=== PATIENT | male | born 1990 | race Caucasian/White ===

== ENCOUNTER 2018-09-06 10:03 | Emergency (ER) | payer SELFPAY ==
--- OUTSIDE RECORDS SUMMARY | 2018-09-06 10:06 | XMS REPORT | Clinical Summary ---
:1990 Author Organization [facility] Address [address] [place] [address] Care Team Providers Name Role Phone Asked, No Pcp Primary Care Provider Unavailable Allergies No Known Allergies Medications No known medications Active Problems No known active problems Social History Tobacco Use Types Packs/Day Years Used Date Current Every Day Smoker Alcohol Use Drinks/Week oz/Week Comments Yes 3-5 Cans of beer 1.8 - 3.0 Sex Assigned at Date Recorded Not on file Job Start Date Occupation Industry Not on file Not on file Not on file Travel History Travel Start Travel End No recent travel history available. Last Filed Vital Signs Not on file Plan of Treatment Health Maintenance Due Date Last Done Comments INFLUENZA VACCINE 10/23/2018 Results Not on fileafter 09/05/2017 [phone] (Work) Advance Directives Patient has advance care planning documents on file. For more information, please contact:[address] [address]
[2018-09-06] MEDS ORDERED: COLCHICINE 0.6 MG TAB ONE (10:52)
[2018-09-06] MEDS ORDERED: INDOMETHACIN 25 MG CAP PO ONE (11:00)
--- NOTE | 2018-09-06 11:06 | ER ---
Nurse's Notes [facility] Name: Leonard Gonsales Age: 28 yrs Sex: Male : 1990 Arrival Date: 09/06/2018 Time: 10:06 Bed 14 Private MD: Sha Montgomery Diagnosis: Gout Presentation: 09/06 10:16 Presenting complaint: Patient states: gout flare up to left elbow since night, iw PCP was closed yesterday and he has to go out of town tomorrow, redness and swelling to left elbow, is out of gout medicine. Transition of care: patient was not received from another setting of care. Onset of symptoms was September 04, 2018. Risk Assessment: Do you want to hurt yourself or someone else? Patient reports no desire to harm self or others. Initial Sepsis Screen: Does the patient meet any 2 criteria? No. Patient's initial sepsis screen is negative. Does the patient have a suspected source of infection? No. Patient's initial sepsis screen is negative. Care prior to arrival: None. 10:16 Method Of Arrival: Ambulatory iw 10:16 Acuity: BERNICE 4 iw Historical: - Allergies: 10:20 No Known Allergies; iw - Home Meds: 10:20 None [Active]; iw - PMHx: 10:20 Gout; iw - PSHx: 10:20 Knee surgery; FOOT SX; iw - Immunization history:: Adult Immunizations up to date. - Social history:: Smoking status: Patient uses tobacco products, smokes one pack cigarettes per day. - Ebola Screening: : Patient negative for fever greater than or equal to 101.5 degrees Fahrenheit, and additional compatible Ebola Virus Disease symptoms Patient denies exposure to infectious person Patient denies travel to an Ebola-affected area in the 21 days before illness onset No symptoms or risks identified at this time. Screenin:15 Abuse screen: Denies threats or abuse. Nutritional screening: No deficits noted. rb1 Tuberculosis screening: No symptoms or risk factors identified. Fall Risk None identified. Assessment: 10:15 General: Appears uncomfortable, Behavior is calm, cooperative. Pain: Complains of pain rb1 in left elbow Pain currently is 10 out of 10 on a pain scale. Pain began . Neuro: Level of Consciousness is awake, alert, obeys commands, Oriented to person, place, time, situation. Cardiovascular: Capillary refill < 3 seconds is brisk in bilateral fingers. Respiratory: Airway is patent Respiratory effort is even, unlabored, Respiratory pattern is regular, symmetrical. GI: Reports nausea. : No signs and/or symptoms were reported regarding the genitourinary system. Derm: Skin is pink, warm \T\ dry. Musculoskeletal: Swelling present in left elbow. 11:15 Reassessment: Patient appears in no apparent distress at this time. No changes from rb1 previously documented assessment. Vital Signs: 10:20 BP 138 / 79; Pulse 91; Resp 16; Temp 97.8; Pulse Ox 100% ; Weight 111.13 kg; Height 5 iw ft. 11 in. (180.34 cm); Pain 10/10; 11:15 BP 136 / 75; Pulse 89; Resp 17; Temp 98(O); Pulse Ox 100% on R/A; Pain 9/10; rb1 10:20 Body Mass Index 34.17 (111.13 kg, 180.34 cm) iw ED Course: 10:06 Patient arrived in ED. ag5 10:07 Sha Montgomery MD is Private Physician. ag5 10:14 [facility] jr8 10:14 Rj Francois MD is Attending Physician. jr8 10:15 Patient has correct armband on for positive identification. Bed in low position. Call rb1 light in reach. Side rails up X 1. Pulse ox on. NIBP on. 10:19 Triage completed. iw 10:20 Arm band placed on. iw 10:29 Lucinda Hobbs, RN is Primary Nurse. rb1 11:05 Sha Montgomery MD is Referral Physician. jr8 11:19 No provider procedures requiring assistance completed. Patient did not have IV access rb1 during this emergency room visit. Administered Medications: 10:40 Drug: Colcrys 1.2 mg Route: PO; rb1 11:19 Follow up: Response: No adverse reaction rb1 11:04 Drug: Indomethacin 50 mg Route: PO; rb1 11:19 Follow up: Response: No adverse reaction rb1 Outcome: 11:06 Discharge ordered by . jr8 11:19 Discharged to home ambulatory. rb1 11:19 Condition: stable 11:19 Discharge instructions given to patient, Instructed on discharge instructions, follow up and referral plans. medication usage, Demonstrated understanding of instructions, follow-up care, medications, Prescriptions given X 2. 11:20 Patient left the ED. rb1 Signatures: Sandra Martin RN RN iw Wali Molina PA PA jr8 Lucinda Hobbs, RN RN rb1 Floyd Anderson ag5 Corrections: (The following items were deleted from the chart) 10:21 10:20 Pulse 91bpm; Resp 16bpm; Pulse Ox 100%; Temp 97.8F; 111.13 kg; Height 5 ft. 11 iw in.; BMI: 34.1; Pain 01/01; iw
--- NOTE | 2018-09-06 11:06 | EDPHYS ---
Physician Documentation [facility] Name: Leonard Gonsales Age: 28 yrs Sex: Male : 1990 Arrival Date: 09/06/2018 Time: 10:06 Bed 14 Private MD: Sha Montgomery ED Physician Rj Francois HPI: 09/06 11:14 This 28 yrs old Male presents to ER via Ambulatory with complaints of GOUT jr8 FLARE UP. 11:14 The patient or guardian complains of pain, swelling, tenderness. The complaints affect jr8 the left elbow. Context: The problem was sustained at home. Onset: The symptoms/episode began/occurred acutely, yesterday. Treatment prior to arrival includes: no previous treatment. Modifying factors: The symptoms are alleviated by nothing. the symptoms are aggravated by movement. Associated signs and symptoms: The patient has no apparent associated signs or symptoms. Severity of symptoms: At their worst the symptoms were moderate, in the emergency department the symptoms are unchanged. The patient has experienced similar episodes in the past, several times. The patient has not recently seen a physician. History of gout. Stated that he has been off of his meds for several weeks an now is having a flare up. Fixing to leave town and cannot get into PCP . Historical: - Allergies: 10:20 No Known Allergies; iw - Home Meds: 10:20 None [Active]; iw - PMHx: 10:20 Gout; iw - PSHx: 10:20 Knee surgery; FOOT SX; iw - Immunization history:: Adult Immunizations up to date. - Social history:: Smoking status: Patient uses tobacco products, smokes one pack cigarettes per day. - Ebola Screening: : Patient negative for fever greater than or equal to 101.5 degrees Fahrenheit, and additional compatible Ebola Virus Disease symptoms Patient denies exposure to infectious person Patient denies travel to an Ebola-affected area in the 21 days before illness onset No symptoms or risks identified at this time. ROS: 11:14 Eyes: Negative for injury, pain, redness, and discharge, ENT: Negative for injury, jr8 pain, and discharge, Neck: Negative for injury, pain, and swelling, Cardiovascular: Negative for chest pain, palpitations, and edema, Respiratory: Negative for shortness of breath, cough, wheezing, and pleuritic chest pain, Abdomen/GI: Negative for abdominal pain, nausea, vomiting, diarrhea, and constipation, Back: Negative for injury and pain, Skin: Negative for injury, rash, and discoloration, Neuro: Negative for headache, weakness, numbness, tingling, and seizure. 11:14 MS/extremity: Positive for pain, swelling, tenderness, of the left elbow. Exam: 11:14 Eyes: Pupils equal round and reactive to light, extra-ocular motions intact. Lids and jr8 lashes normal. Conjunctiva and sclera are non-icteric and not injected. Cornea within normal limits. Periorbital areas with no swelling, redness, or edema. ENT: Nares patent. No nasal discharge, no septal abnormalities noted. Tympanic membranes are normal and external auditory canals are clear. Oropharynx with no redness, swelling, or masses, exudates, or evidence of obstruction, uvula midline. Mucous membranes moist. Neck: Trachea midline, no thyromegaly or masses palpated, and no cervical lymphadenopathy. Supple, full range of motion without nuchal rigidity, or vertebral point tenderness. No Meningismus. Cardiovascular: Regular rate and rhythm with a normal S1 and S2. No gallops, murmurs, or rubs. Normal PMI, no JVD. No pulse deficits. Respiratory: Lungs have equal breath sounds bilaterally, clear to auscultation and percussion. No rales, rhonchi or wheezes noted. No increased work of breathing, no retractions or nasal flaring. Abdomen/GI: Soft, non-tender, with normal bowel sounds. No distension or tympany. No guarding or rebound. No evidence of tenderness throughout. Back: No spinal tenderness. No costovertebral tenderness. Full range of motion. Skin: Warm, dry with normal turgor. Normal color with no rashes, no lesions, and no evidence of cellulitis. Neuro: Awake and alert, GCS 15, oriented to person, place, time, and situation. Cranial nerves II-XII grossly intact. Motor strength 5/5 in all extremities. Sensory grossly intact. Cerebellar exam normal. Normal gait. 11:14 Musculoskeletal/extremity: Extremities: grossly normal except: noted in the left elbow: Mild swelling, warmth, and tenderness noted to left elbow. Pain with active and passive ROM noted. All other extremities without acute findings , Circulation is intact in all extremities. Pulses: noted to be 2+ in the right radial artery and left radial artery, Sensation intact. Vital Signs: 10:20 BP 138 / 79; Pulse 91; Resp 16; Temp 97.8; Pulse Ox 100% ; Weight 111.13 kg; Height 5 iw ft. 11 in. (180.34 cm); Pain 10/10; 11:15 BP 136 / 75; Pulse 89; Resp 17; Temp 98(O); Pulse Ox 100% on R/A; Pain 9/10; rb1 10:20 Body Mass Index 34.17 (111.13 kg, 180.34 cm) iw MDM: 10:14 Patient medically screened. jr8 11:05 Data reviewed: vital signs, nurses notes, and as a result, I will discharge patient. jr8 Data interpreted: Pulse oximetry: on room air is 100 %. Interpretation: normal. Counseling: I had a detailed discussion with the patient and/or guardian regarding: the historical points, exam findings, and any diagnostic results supporting the discharge/admit diagnosis, the need for outpatient follow up, a family practitioner, to return to the emergency department if symptoms worsen or persist or if there are any questions or concerns that arise at home. Response to treatment: the patient's symptoms have markedly improved after treatment. Administered Medications: 10:40 Drug: Colcrys 1.2 mg Route: PO; rb1 11:19 Follow up: Response: No adverse reaction rb1 11:04 Drug: Indomethacin 50 mg Route: PO; rb1 11:19 Follow up: Response: No adverse reaction rb1 Disposition: 09/07 08:18 Co-signature as Attending Physician, Rj Francois MD. Disposition: 09/06/18 11:06 Discharged to Home. Impression: Gout. - Condition is Stable. - Discharge Instructions: Gout. - Prescriptions for Colcrys 0.6 mg Oral tablet - take 1 tablet by ORAL route once daily; 6 tablet. indomethacin 50 mg Oral capsule - take 1 capsule by ORAL route 3 times per day As needed with food.; 12 capsule. - Medication Reconciliation Form, Thank You Letter, Antibiotic Education, Prescription Opioid Use form. - Follow up: Sha Montgomery MD; When: 5 - 6 days; Reason: Recheck today's complaints, Continuance of care, Re-evaluation by your physician. - Problem is new. - Symptoms have improved. Signatures: Sandra Martin RN RN iw Wali Molina PA PA jr8 Lucinda Hobbs, RN RN rb1 Rj Francois MD MD gs Corrections: (The following items were deleted from the chart) 09/06 11:20 11:06 09/06/2018 11:06 Discharged to Home. Impression: Gout. Condition is Stable. Forms rb1 are Medication Reconciliation Form, Thank You Letter, Antibiotic Education, Prescription Opioid Use. Follow up: Sha Montgomery; When: 5 - 6 days; Reason: Recheck today's complaints, Continuance of care, Re-evaluation by your physician. Problem is new. Symptoms have improved. jr8
== END 2018-09-06 11:20 | disposition home or self-care (01) ==
LOC: ER 10:03
DX: M10.9 Gout, unspecified (principal); F17.210 Nicotine dependence, cigarettes, uncomplicated
CPT/HCPCS: 99283

== ENCOUNTER 2020-01-21 14:54 | Emergency (ER) | payer BC, SELFPAY ==
--- OUTSIDE RECORDS SUMMARY | 2020-01-21 15:01 | XMS REPORT | Clinical Summary ---
:1990 Author Organization [facility] Address [address] [place] [id number] Care Team Providers Name Role Phone Asked, No Pcp Primary Care Provider Unavailable Allergies No Known Active Allergies Medications No known medications Active Problems No known active problems Surgical History Surgery Date Site/Laterality Comments ORTHOPEDIC SURGERY 03/25/2014 - 03/24/2015 Right Right A CL ORTHOPEDIC SURGERY 03/25/2013 - 03/24/2014 Bilateral Hammer toe surgery Social History Tobacco Use Types Packs/Day Years Used Date Current Every Day Smoker Alcohol Use Drinks/Week oz/Week Comments Yes 3-5 Cans of beer 3.0 - 5.0 Sex Assigned at Date Recorded Not on file Last Filed Vital Signs Not on file Plan of Treatment Health Maintenance Due Date Last Done Comments INFLUENZA VACCINE 10/24/2019 Results Not on fileafter 01/20/2019 [phone] (Work) Advance Directives For more information, please contact: [phone] Type Date Recorded 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
--- NOTE | 2020-01-21 16:26 | EDPHYS ---
Physician Documentation [facility] Name: Leonard Gonsales Age: 29 yrs Sex: Male : 1990 Arrival Date: 01/21/2020 Time: 15:03 Bed 18 Private MD: ED Physician Diogenes Blanton HPI: 01/20 17:41 This 29 yrs old Male presents to ER via Ambulatory with complaints of Gout. kdr 17:41 The patient or guardian complains of decreased range of motion, pain, that is acute. kdr The complaints affect the left antecubital area and left elbow. Context: The problem was sustained at home, resulted from a chronic condition, Gout flare. Onset: The symptoms/episode began/occurred yesterday. Treatment prior to arrival includes: no previous treatment. Modifying factors: The symptoms are alleviated by nothing. the symptoms are aggravated by movement, bending arm. Associated signs and symptoms: Pertinent positives: decreased range of motion, pain, warmth, of the left antecubital area and left elbow. Severity of symptoms: At their worst the symptoms were mild, moderate, just prior to arrival, in the emergency department the symptoms are unchanged. The patient has experienced similar episodes in the past, multiple times, and the symptoms today are exactly the same. The patient has not recently seen a physician. Historical: - Allergies: 15:07 No Known Allergies; sv - PMHx: 15:07 Gout; sv - PSHx: 15:07 Knee surgery; FOOT SX; sv - Immunization history:: Flu vaccine is up to date. - Social history:: Smoking status: Patient reports the use of cigarette tobacco products, smokes one pack cigarettes per day. ROS: 17:41 Constitutional: Negative for fever, chills, and weight loss, Eyes: Negative for injury, kdr pain, redness, and discharge. 17:41 MS/extremity: Positive for decreased range of motion, pain, tenderness, of the left antecubital area and left elbow. Exam: 17:41 Constitutional: This is a well developed, well nourished patient who is awake, alert, kdr and in no acute distress. 17:41 Musculoskeletal/extremity: ROM: limited active range of motion, limited passive range of motion, in the left arm, limited active range of motion due to pain, limited passive range of motion due to pain, Circulation is intact in all extremities. Sensation intact. Joints: All joints are normal except the left elbow displays pain at rest, painful range of motion, tenderness. Vital Signs: 15:07 BP 123 / 76; Pulse 82; Resp 18; Temp 97.4; Pulse Ox 100% ; Weight 117.93 kg; Height 5 sv ft. 11 in. (180.34 cm); 15:51 BP 143 / 84; Pulse 86; Resp 16; Pulse Ox 98% on R/A; ss 15:07 Body Mass Index 36.26 (117.93 kg, 180.34 cm) sv MDM: 16:25 Patient medically screened. kdr 17:41 Data reviewed: vital signs, nurses notes. Counseling: I had a detailed discussion with kdr the patient and/or guardian regarding: the historical points, exam findings, and any diagnostic results supporting the discharge/admit diagnosis, the need for outpatient follow up. Administered Medications: No medications were administered Disposition: 01/21/20 16:25 Discharged to Home. Impression: Idiopathic gout, left elbow. - Condition is Stable. - Discharge Instructions: Low-Purine Diet, Gout, [id number]. - Prescriptions for Colcrys 0.6 mg Oral tablet - take 1 tablet by ORAL route once daily As needed; 6 tablet. indomethacin 50 mg Oral capsule - take 1 capsule by ORAL route 3 times per day for 4 days; 12 capsule. - Medication Reconciliation Form, Thank You Letter form. - Follow up: Private Physician; When: 2 - 3 days; Reason: If symptoms return, Further diagnostic work-up, Recheck today's complaints, Continuance of care, Re-evaluation by your physician. - Problem is an acute exacerbation. - Symptoms are unchanged. Signatures: Caitlyn Clayton, RN RN Diogenes Blanton MD MD [facility] Luz Maria Goldstein RN RN ll2 Corrections: (The following items were deleted from the chart) 16:36 16:25 01/21/2020 16:25 Discharged to Home. Impression: Idiopathic gout, left elbow. ll2 Condition is Stable. Forms are Medication Reconciliation Form, Thank You Letter, Antibiotic Education, Prescription Opioid Use. Follow up: Private Physician; When: 2 - 3 days; Reason: If symptoms return, Further diagnostic work-up, Recheck today's complaints, Continuance of care, Re-evaluation by your physician. Problem is an acute exacerbation. Symptoms are unchanged. kdr
--- NOTE | 2020-01-21 16:26 | ER ---
Nurse's Notes [facility] Name: Leonard Gonsales Age: 29 yrs Sex: Male : 1990 Arrival Date: 01/21/2020 Time: 15:03 Bed 18 Private MD: Diagnosis: Idiopathic gout, left elbow Presentation: 01/20 15:06 Chief complaint: Patient states: left elbow gout that has increased over the last 3 sv days. Coronavirus screen: Client denies travel out of the [place] in the last 14 days. At this time, the client does not indicate any symptoms associated with coronavirus-19. Ebola Screen: No symptoms or risks identified at this time. Risk Assessment: Do you want to hurt yourself or someone else? Patient reports no desire to harm self or others. Onset of symptoms was January 18, 2020. 15:06 Method Of Arrival: Ambulatory sv 15:06 Acuity: BERNICE 4 sv 15:07 Initial Sepsis Screen: Does the patient meet any 2 criteria? No. Patient's initial sv sepsis screen is negative. Does the patient have a suspected source of infection? No. Patient's initial sepsis screen is negative. Triage Assessment: 15:06 General: Appears in no apparent distress. uncomfortable, Behavior is calm, cooperative, sv appropriate for age. Pain: Complains of pain in left elbow. Neuro: Level of Consciousness is awake, alert, obeys commands, Gait is steady. Respiratory: Respiratory effort is even, unlabored. Historical: - Allergies: 15:07 No Known Allergies; sv - PMHx: 15:07 Gout; sv - PSHx: 15:07 Knee surgery; FOOT SX; sv - Immunization history:: Flu vaccine is up to date. - Social history:: Smoking status: Patient reports the use of cigarette tobacco products, smokes one pack cigarettes per day. Screenin:50 Abuse screen: Denies threats or abuse. Nutritional screening: No deficits noted. ss Tuberculosis screening: No symptoms or risk factors identified. Fall Risk None identified. Assessment: 15:49 General: Appears in no apparent distress. Behavior is calm, cooperative, appropriate ss for age. Pain: Complains of pain in left elbow. Neuro: Level of Consciousness is awake, alert, obeys commands, Oriented to person, place, time, situation. Cardiovascular: Capillary refill < 3 seconds Patient's skin is warm and dry. Respiratory: Airway is patent Respiratory effort is even, unlabored, Respiratory pattern is regular, symmetrical. GI: No signs and/or symptoms were reported involving the gastrointestinal system. : No signs and/or symptoms were reported regarding the genitourinary system. EENT: No signs and/or symptoms were reported regarding the EENT system. Derm: Skin is intact, is healthy with good turgor, Skin is dry, Skin is pink, warm \T\ dry. Skin temperature is warm. Musculoskeletal: Circulation, motion, and sensation intact. Range of motion: limited in left elbow. Vital Signs: 15:07 BP 123 / 76; Pulse 82; Resp 18; Temp 97.4; Pulse Ox 100% ; Weight 117.93 kg; Height 5 sv ft. 11 in. (180.34 cm); 15:51 BP 143 / 84; Pulse 86; Resp 16; Pulse Ox 98% on R/A; ss 15:07 Body Mass Index 36.26 (117.93 kg, 180.34 cm) sv ED Course: 15:03 Patient arrived in ED. ds1 15:06 Arm band placed on. sv 15:07 Triage completed. sv 15:44 Marcos Nails, RN is Primary Nurse. em 15:51 Patient has correct armband on for positive identification. Bed in low position. Call light in reach. Side rails up X 1. Pulse ox on. NIBP on. 15:58 Diogenes Blanton MD is Attending Physician. kdr 16:36 No provider procedures requiring assistance completed. Patient did not have IV access ll2 during this emergency room visit. Administered Medications: No medications were administered Outcome: 16:25 Discharge ordered by . kdr 16:36 Discharged to home ambulatory. ll2 16:36 Condition: stable 16:36 Discharge instructions given to patient, Instructed on discharge instructions, follow up and referral plans. medication usage, Demonstrated understanding of instructions, follow-up care, medications, Prescriptions given X 2. 16:36 Patient left the ED. ll2 Signatures: Caitlyn Clayton RN RN Diogenes Blanton MD MD [facility] Marcos Nails RN JOVANI Mccoyi ds1 Emelia Perkins RN RN Luz Maria Goldstein RN RN ll2 Corrections: (The following items were deleted from the chart) 15:10 15:07 Resp 18bpm; Pulse Ox 100%; Temp 97.4F; 117.93 kg; Height 5 ft. 11 in.; BMI: 36.2; sv sv
[2020-01-21 16:46] VITALS: TEMP 97.4
[2020-01-21 16:47] VITALS: BP 143/84; O2SAT 98
== END 2020-01-21 16:36 | disposition home or self-care (01) ==
LOC: ER 14:54
DX: M10.022 Idiopathic gout, left elbow (principal); F17.210 Nicotine dependence, cigarettes, uncomplicated
CPT/HCPCS: 99283

== ENCOUNTER 2020-02-11 13:24 | Emergency (ER) | payer BC ==
--- OUTSIDE RECORDS SUMMARY | 2020-02-11 13:38 | XMS REPORT | Clinical Summary ---
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
[2020-02-11] MEDS ORDERED: METHYLPREDNISOLONE 125 MG INJ ONE (14:33)
[2020-02-11] MEDS ORDERED: AZITHROMYCIN 250 MG TAB ONE (14:33)
[2020-02-11] MEDS ORDERED: IPRATROPIUM BROM 0.5MG/2.5ML ONE (14:33)
[2020-02-11] MEDS ORDERED: ALBUTEROL 2.5 MG/3 ML NEB SOL ONE (14:33)
--- NOTE | 2020-02-11 14:54 | RAD REPORT ---
EXAM DESCRIPTION: RAD - Chest Single View - 02/11/2020 2:48 pm CLINICAL HISTORY: COUGH Chest pain. COMPARISON: No comparisons FINDINGS: Portable technique limits examination quality. The lungs are grossly clear. The heart is normal in size. No displaced fractures. IMPRESSION: No acute intrathoracic process suspected.
--- NOTE | 2020-02-11 15:15 | EDPHYS ---
Physician Documentation [facility] Name: Leonard Gonsales Age: 29 yrs Sex: Male : 1990 Arrival Date: 02/11/2020 Time: 13:26 Bed 19 Private MD: Sha Montgomery ED Physician Jericho Spence HPI: 02/10 15:10 This 29 yrs old Male presents to ER via Ambulatory with complaints of kb Bronchitis. 15:10 The patient or guardian reports cough, that is intermittent, described as moderate, kb with no sputum, difficulty breathing. Onset: The symptoms/episode began/occurred 6 day(s) ago. Severity of symptoms: At their worst the symptoms were moderate, in the emergency department the symptoms are unchanged. Modifying factors: The symptoms are alleviated by nothing, the symptoms are aggravated by nothing. Associated signs and symptoms: The patient has no apparent associated signs or symptoms. The patient has experienced similar episodes in the past, multiple times. The patient has not recently seen a physician. Pt reports he has chronic bronchitis and needs some medication because it has been acting up for the past 6 days. Historical: - Allergies: 13:50 No Known Allergies; rb3 - Home Meds: 13:50 None [Active]; rb3 - PMHx: 13:50 Gout; rb3 - PSHx: 13:50 Knee surgery; FOOT SX; rb3 - Immunization history:: Adult Immunizations up to date. ROS: 15:09 Constitutional: Negative for fever, chills, and weight loss, Cardiovascular: Negative kb for chest pain, palpitations, and edema, Abdomen/GI: Negative for abdominal pain, nausea, vomiting, diarrhea, and constipation, Back: Negative for injury and pain, MS/Extremity: Negative for injury and deformity, Skin: Negative for injury, rash, and discoloration, Neuro: Negative for headache, weakness, numbness, tingling, and seizure. 15:09 Respiratory: Positive for cough, shortness of breath, Negative for hemoptysis, orthopnea, pleurisy, sputum production, wheezing. Exam: 15:09 Constitutional: This is a well developed, well nourished patient who is awake, alert, kb and in no acute distress. Head/Face: Normocephalic, atraumatic. Chest/axilla: Normal chest wall appearance and motion. Nontender with no deformity. No lesions are appreciated. Cardiovascular: Regular rate and rhythm with a normal S1 and S2. No gallops, murmurs, or rubs. Normal PMI, no JVD. No pulse deficits. Abdomen/GI: Soft, non-tender, with normal bowel sounds. No distension or tympany. No guarding or rebound. No evidence of tenderness throughout. Skin: Warm, dry with normal turgor. Normal color with no rashes, no lesions, and no evidence of cellulitis. MS/ Extremity: Pulses equal, no cyanosis. Neurovascular intact. Full, normal range of motion. Neuro: Awake and alert, GCS 15, oriented to person, place, time, and situation. Cranial nerves II-XII grossly intact. Motor strength 5/5 in all extremities. Sensory grossly intact. Cerebellar exam normal. Normal gait. 15:09 Respiratory: the patient does not display signs of respiratory distress, Respirations: normal, Breath sounds: wheezing: expiratory that is moderate, is heard diffusely. Vital Signs: 13:55 BP 143 / 92; Pulse 62; Resp 18; Temp 98.2; Pulse Ox 98% on R/A; Weight 120.2 kg; Height iw 5 ft. 11 in. (180.34 cm); Pain 0/10; 14:37 BP 135 / 91; Pulse 67; Resp 17; Pulse Ox 100% ; rb3 15:27 BP 135 / 91; Pulse 67; Resp 16; Pulse Ox 100% ; rb3 13:55 Body Mass Index 36.96 (120.20 kg, 180.34 cm) iw MDM: 13:50 Patient medically screened. kb 15:09 Data reviewed: vital signs, nurses notes. Data interpreted: Pulse oximetry: on room air kb is 100 %. Interpretation: normal. Counseling: I had a detailed discussion with the patient and/or guardian regarding: the historical points, exam findings, and any diagnostic results supporting the discharge/admit diagnosis, radiology results, the need for outpatient follow up, a family practitioner, to return to the emergency department if symptoms worsen or persist or if there are any questions or concerns that arise at home. 02/10 14:05 Order name: Chest Single View XRAY; Complete Time: 14:59 kb Administered Medications: 14:30 Drug: SOLU-Medrol 125 mg Route: IM; Site: right gluteus; rb3 14:45 Follow up: Response: No adverse reaction rb3 14:30 Drug: Zithromax 500 mg Route: PO; rb3 15:00 Follow up: Response: No adverse reaction rb3 14:30 Drug: DuoNeb (3:1) (2.5 mg - 0.5 mg) 3 ml Route: Nebulizer; rb3 14:45 Follow up: Response: No adverse reaction rb3 Disposition: 02/11 06:04 Co-signature as Attending Physician, Jericho Spence MD I agree with the assessment and tyson plan of care. Disposition: 02/11/20 15:14 Discharged to Home. Impression: Acute bronchitis. - Condition is Stable. - Discharge Instructions: Acute Bronchitis, [id number]. - Prescriptions for Prednisone 20 mg Oral Tablet - take 1 tablet by ORAL route once daily for 5 days; 5 tablet. Albuterol Sulfate 90 mcg/actuation - inhale 1-2 puff by INHALATION route every 4-6 hours; 1 Inhaler. Zithromax 500 mg Oral Tablet - take 1 tablet by ORAL route once daily for 5 days; 5 tablet. - Medication Reconciliation Form, Thank You Letter, Antibiotic Education, Prescription Opioid Use form. - Follow up: Emergency Department; When: As needed; Reason: Worsening of condition. Follow up: Private Physician; When: 2 - 3 days; Reason: Recheck today's complaints, Continuance of care, Re-evaluation by your physician. Signatures: Dispatcher [employer] EDNC Dana Barrios, COSMETIC ASSEMBLER-C COSMETIC ASSEMBLER-Jericho Saha MD MD cha Barber, Rebecca, RN RN rb3 Corrections: (The following items were deleted from the chart) 02/10 15:10 15:09 Respiratory: the patient does not display signs of respiratory distress, kb Respirations: normal, Breath sounds: wheezing: expiratory that is moderate, is scattered, kb 15:36 15:14 02/11/2020 15:14 Discharged to Home. Impression: Acute bronchitis. Condition is rb3 Stable. Forms are Medication Reconciliation Form, Thank You Letter, Antibiotic Education, Prescription Opioid Use. Follow up: Emergency Department; When: As needed; Reason: Worsening of condition. Follow up: Private Physician; When: 2 - 3 days; Reason: Recheck today's complaints, Continuance of care, Re-evaluation by your physician. kb
--- NOTE | 2020-02-11 15:15 | ER ---
Nurse's Notes [facility] Name: Leonard Gonsales Age: 29 yrs Sex: Male : 1990 Arrival Date: 02/11/2020 Time: 13:26 Bed 19 Private MD: Sha Montgomery Diagnosis: Acute bronchitis Presentation: 02/10 13:53 Chief complaint: Patient states: i have chronic bronchitis and for the last few days i iw feel like it is acting up. Coronavirus screen: Client denies travel out of the [place] in the last 14 days. Ebola Screen: No symptoms or risks identified at this time. 13:53 Method Of Arrival: Ambulatory iw 13:55 Initial Sepsis Screen: Does the patient meet any 2 criteria? No. Patient's initial iw sepsis screen is negative. Does the patient have a suspected source of infection? No. Patient's initial sepsis screen is negative. Risk Assessment: Do you want to hurt yourself or someone else? Patient reports no desire to harm self or others. Onset of symptoms is unknown. 13:55 Acuity: BERNICE 4 iw Historical: - Allergies: 13:50 No Known Allergies; rb3 - Home Meds: 13:50 None [Active]; rb3 - PMHx: 13:50 Gout; rb3 - PSHx: 13:50 Knee surgery; FOOT SX; rb3 - Immunization history:: Adult Immunizations up to date. Screenin:50 Abuse screen: Denies threats or abuse. Nutritional screening: No deficits noted. rb3 Tuberculosis screening: No symptoms or risk factors identified. Fall Risk None identified. Assessment: 13:50 General: Appears in no apparent distress. comfortable, Behavior is calm, cooperative, rb3 Denies fever. Pain: Denies pain. Neuro: Level of Consciousness is awake, alert, obeys commands, Oriented to person, place, time, situation. Cardiovascular: Patient's skin is warm and dry. Respiratory: Airway is patent Respiratory effort is even, unlabored, Respiratory pattern is regular, symmetrical. Respiratory: Reports cough that is productive, yellow/green sputum. GI: No signs and/or symptoms were reported involving the gastrointestinal system. : No signs and/or symptoms were reported regarding the genitourinary system. 14:44 Reassessment: Patient appears in no apparent distress at this time. Patient and/or rb3 family updated on plan of care and expected duration. Pain level reassessed. Patient is alert, oriented x 3, equal unlabored respirations, skin warm/dry/pink. 15:25 Reassessment: Patient appears in no apparent distress at this time. No changes from rb3 previously documented assessment. Vital Signs: 13:55 BP 143 / 92; Pulse 62; Resp 18; Temp 98.2; Pulse Ox 98% on R/A; Weight 120.2 kg; Height iw 5 ft. 11 in. (180.34 cm); Pain 0/10; 14:37 BP 135 / 91; Pulse 67; Resp 17; Pulse Ox 100% ; rb3 15:27 BP 135 / 91; Pulse 67; Resp 16; Pulse Ox 100% ; rb3 13:55 Body Mass Index 36.96 (120.20 kg, 180.34 cm) iw ED Course: 13:26 Patient arrived in ED. ag5 13:26 Sha Montgomery MD is Private Physician. ag5 13:36 Dana Barrios FNP-C is [facility]. kb 13:36 Jericho Spence MD is Attending Physician. kb 13:50 Patient has correct armband on for positive identification. Bed in low position. Call rb3 light in reach. Side rails up X 1. Pulse ox on. NIBP on. 13:50 Arm band placed on right wrist. rb3 13:55 Triage completed. iw 14:16 Lucinda Hobbs, RN is Primary Nurse. rb3 14:49 Chest Single View XRAY In Process Unspecified. EDMS 15:28 No provider procedures requiring assistance completed. Patient did not have IV access rb3 during this emergency room visit. Administered Medications: 14:30 Drug: SOLU-Medrol 125 mg Route: IM; Site: right gluteus; rb3 14:45 Follow up: Response: No adverse reaction rb3 14:30 Drug: Zithromax 500 mg Route: PO; rb3 15:00 Follow up: Response: No adverse reaction rb3 14:30 Drug: DuoNeb (3:1) (2.5 mg - 0.5 mg) 3 ml Route: Nebulizer; rb3 14:45 Follow up: Response: No adverse reaction rb3 Outcome: 15:14 Discharge ordered by . kb 15:28 Discharged to home ambulatory. rb3 15:28 Condition: stable 15:28 Discharge instructions given to patient, Instructed on discharge instructions, follow up and referral plans. medication usage, Demonstrated understanding of instructions, follow-up care, medications, Prescriptions given X 3. 15:36 Patient left the ED. rb3 Signatures: Dispatcher [employer] EDMS Dana Bariros, ASSOCIATE PROFESSOR OF KINESIOLOGY-C KEERTHI-Sandra Ko RN RN Floyd Anderson [facility] Lucinda Hobbs, RN RN rb3
[2020-02-12 02:14] VITALS: TEMP 98.2
[2020-02-12 02:21] VITALS: BP 135/91; O2SAT 100
== END 2020-02-11 15:36 | disposition home or self-care (01) ==
LOC: ER 13:24
DX: J20.9 Acute bronchitis, unspecified (principal)
CPT/HCPCS: 71045; 96372; 99284; J2930

== ENCOUNTER 2021-02-24 11:46 | Emergency (ER) | payer BC ==
--- NOTE | 2021-02-24 12:29 | ER ---
Nurse's Notes [facility] Name: Leonard Gonsales Age: 31 yrs Sex: Male : 1990 Arrival Date: 02/24/2021 Time: 11:49 Bed 12 Private MD: Diagnosis: Gout, unspecified Presentation: 02/24 11:57 Chief complaint: Patient states: Patient reports pain to his r great toe x2 days, jg9 patient has hx of gout and is on allopurinol which is not helping. Patient also on hydrocodone for r shoulder tare. Patient denies injury of poor dietary habits recently, denied any alcohol use. Coronavirus screen: Vaccine status: Patient reports being unvaccinated. Ebola Screen: No symptoms or risks identified at this time. Initial Sepsis Screen: Does the patient meet any 2 criteria? No. Patient's initial sepsis screen is negative. Does the patient have a suspected source of infection?. Risk Assessment: Do you want to hurt yourself or someone else? Patient reports no desire to harm self or others. Onset of symptoms was February 22, 2021. Mechanism of Injury: No Mechanism of Injury. 11:57 Method Of Arrival: Wheelchair 9 11:57 Acuity: BERNICE 4 jg9 Triage Assessment: 12:00 General: Appears uncomfortable, r foot pain. Pain: Complains of pain in right foot-r jg9 great toe pain Pain began 2-3 days ago. Alleviated by nothing. Aggravated by weight bearing, Noted to be grimacing, Also complains of no other associated symptoms. Current management is with Goal of pain control is to. EENT: No deficits noted. Neuro: No deficits noted. Cardiovascular: No deficits noted. Respiratory: No deficits noted. GI: No deficits noted. : No deficits noted. Derm: No deficits noted. Musculoskeletal: Swelling present in right foot. 12:09 General: Behavior is calm, quiet. j9 Historical: - PMHx: 11:49 Gout; ll1 - Immunization history:: Adult Immunizations up to date. - Social history:: Smoking status: Patient reports the use of cigarette tobacco products, smokes one pack cigarettes per day. Screenin:06 Abuse screen: Denies threats or abuse. Denies injuries from another. Nutritional 9 screening: No deficits noted. Exposure risk/Travel Screening: None identified. 12:10 Fall Risk None identified. jg9 12:10 Tuberculosis screening: No symptoms or risk factors identified. jg9 Assessment: 12:05 Pain: Complains of pain in right foot-r great toe pain that radiates when weight jg9 bearing, 10/10-patient tolerates pain at 7/10. 12:31 Reassessment: No changes from previously documented assessment. Patient reports no jg9 change in pain after receiving medication, pain is still /. Vital Signs: 12:03 BP 138 / 103; Pulse 93; Resp 20; Pulse Ox 100% on R/A; jg9 12:45 BP 144 / 98; Pulse 92; Resp 17; Temp 98.8; Pulse Ox 99% on R/A; jg9 ED Course: 11:49 Patient arrived in ED. kc5 11:50 Dong Hooper PA is PHCP. jmm 11:50 Ren Krueger MD is Attending Physician. [facility] 11:50 Arm band placed on Patient placed in an exam room, on a stretcher. 1 11:51 Kristi Ventura, RN is Primary Nurse. 6 12:00 Triage completed. jg9 12:10 Patient has correct armband on for positive identification. Bed in low position. Call j9 light in reach. 12:43 Patient did not have IV access during this emergency room visit. j9 12:43 No provider procedures requiring assistance completed. jg9 Administered Medications: 12:15 Drug: Decadron (dexamethasone) 10 mg Route: IM; Site: right gluteus; [facility] 12:32 Follow up: Response: No adverse reaction; No change in condition; Pain is unchanged, j9 physician notified 12:15 Drug: Ketorolac 30 mg Route: IM; Site: Ventrogluteal RIGHT; [facility] 12:31 Follow up: Response: No change in condition; Pain is unchanged, physician notified jg9 Outcome: 12:09 Condition: stable j9 12:29 Discharge ordered by . [facility] 12:43 Discharged to home via wheelchair, with significant other. j9 12:43 Discharge instructions given to patient, significant other, Instructed on discharge j9 instructions, follow up and referral plans. Demonstrated understanding of instructions, follow-up care, medications, Prescriptions given X 12:44 Patient left the ED. jg9 Signatures: Dong Hooper PA PA jmm Lewis, Lynsay RN RN ll1 Kristi Ventura RN RN jh6 Diana Bashir kc5 Kristi Alvarenga jg9
--- NOTE | 2021-02-24 12:29 | EDPHYS ---
Physician Documentation [facility] Name: Leonard Gonsales Age: 31 yrs Sex: Male : 1990 Arrival Date: 02/24/2021 Time: 11:49 Bed 12 Private MD: ED Physician Ren Krueger HPI: 02/24 12:00 This 31 yrs old Male presents to ER via Wheelchair with complaints of GOUT ATTACK. jmm 12:00 The patient presents with pain. Onset: The symptoms/episode began/occurred gradually, 1 jmm day(s) ago. Modifying factors: The symptoms are alleviated by nothing. the symptoms are aggravated by nothing. Associated signs and symptoms: Pertinent positives: swelling, Pertinent negatives fever, numbness. The patient has not experienced similar symptoms in the past. Historical: - PMHx: 11:49 Gout; ll1 - Immunization history:: Adult Immunizations up to date. - Social history:: Smoking status: Patient reports the use of cigarette tobacco products, smokes one pack cigarettes per day. ROS: 12:00 Constitutional: Negative for fever, chills, and weight loss, Cardiovascular: Negative jmm for chest pain, palpitations, and edema, Respiratory: Negative for shortness of breath, cough, wheezing, and pleuritic chest pain. 12:00 MS/extremity: Positive for pain, swelling. 12:00 All other systems are negative. Exam: 12:00 Constitutional: This is a well developed, well nourished patient who is awake, alert, jmm and in no acute distress. Head/Face: atraumatic. Eyes: EOMI, no conjunctival erythema appreciated ENT: Moist Mucus Membranes Neck: Trachea midline, Supple Chest/axilla: Normal chest wall appearance and motion. Cardiovascular: Regular rate and rhythm. No edema appreciated Respiratory: Normal respirations, no respiratory distress appreciated Abdomen/GI: Non distended, soft Back: Normal ROM Skin: General appearance color normal 12:00 Musculoskeletal/extremity: ROM: intact in all extremities, left heating fixture tender to palpation, compartments are soft, full dorsalis pulse appreciated, neurovascular intact. 12:00 Skin: Appearance: Color: normal in color. 12:00 Neuro: Orientation: is normal, Mentation: is normal, Memory: is normal. 12:00 Psych: Behavior/mood is pleasant, cooperative. Vital Signs: 12:03 BP 138 / 103; Pulse 93; Resp 20; Pulse Ox 100% on R/A; jg9 12:45 BP 144 / 98; Pulse 92; Resp 17; Temp 98.8; Pulse Ox 99% on R/A; jg9 MDM: 12:[address] [facility] 12:27 Data reviewed: vital signs, nurses notes. Counseling: I had a detailed discussion with [facility] the patient and/or guardian regarding: the historical points, exam findings, and any diagnostic results supporting the discharge/admit diagnosis, the need for outpatient follow up, to return to the emergency department if symptoms worsen or persist or if there are any questions or concerns that arise at home. ED course: Patient is alert and non toxic in appearance in the ED. Advised to discontinue allopurinol. . Administered Medications: 12:15 Drug: Decadron (dexamethasone) 10 mg Route: IM; Site: right gluteus; [facility] 12:32 Follow up: Response: No adverse reaction; No change in condition; Pain is unchanged, 9 physician notified 12:15 Drug: Ketorolac 30 mg Route: IM; Site: Ventrogluteal RIGHT; [facility] 12:31 Follow up: Response: No change in condition; Pain is unchanged, physician notified jg9 Disposition: 02/25 07:01 Co-signature as Attending Physician, Ren Krueger MD. rn Disposition Summary: 02/24/21 12:29 Discharge Ordered Location: Home [facility] Condition: Stable [facility] Problem: an acute exacerbation j9 Symptoms: are unchanged j9 Diagnosis - Gout, unspecified [facility] Followup: [facility] - With: Private Physician - When: 2 - 3 days - Reason: Recheck today's complaints, Continuance of care, Re-evaluation by your physician Discharge Instructions: - Discharge Summary Sheet [facility] - Gout [facility] - Low-Purine Eating Plan [facility] - Form - Excuse from Work, School, or Physical Activity 9 Forms: - Medication Reconciliation Form [facility] - Thank You Letter [facility] - Antibiotic Education [facility] - Prescription Opioid Use [facility] Prescriptions: - indomethacin 50 mg Oral capsule - take 1 capsule by ORAL route 3 times per day for 7 days; 30 capsule; Refills: [facility] 0, Product Selection Permitted Signatures: Dong Hooper PA PA [facility] Ren Krueger MD MD rn Lewis, Lynsay, RN RN ll1 Kristi Ventura, RN RN jh6 Kristi Alvarenga jg9
[2021-02-24 12:50] VITALS: BP 138/103; O2SAT 100
== END 2021-02-24 12:44 | disposition home or self-care (01) ==
LOC: ER 11:46
DX: M10.9 Gout, unspecified (principal)
CPT/HCPCS: 96372; 99283

== ENCOUNTER 2022-01-06 03:00 | Emergency (ER) | payer BC ==
[2022-01-06] MEDS ORDERED: COLCHICINE 0.6 MG TAB ONE (03:17)
[2022-01-06] MEDS ORDERED: dexAMETHasone 10 MG/ML VIAL ONE (03:17)
[2022-01-06] MEDS ORDERED: KETOROLAC 30 MG/ML INJ ONE (03:18)
--- NOTE | 2022-01-06 03:36 | ER ---
Nurse's Notes [facility] Name: Leonard Gonsales Age: 31 yrs Sex: Male : 1990 Arrival Date: 01/06/2022 Time: 03:04 Bed 5 Private MD: Diagnosis: Idiopathic gout, left ankle and foot;Essential (primary) hypertension Presentation: 01/06 03:10 Chief complaint: Patient states: Gout pain in left ankle. Coronavirus screen: Vaccine ke1 status: Patient reports being unvaccinated. Ebola Screen: No symptoms or risks identified at this time. Initial Sepsis Screen: Does the patient meet any 2 criteria? No. Patient's initial sepsis screen is negative. Does the patient have a suspected source of infection? No. Patient's initial sepsis screen is negative. Risk Assessment: Do you want to hurt yourself or someone else? Patient reports no desire to harm self or others. Onset of symptoms was January 05, 2022 at 08:00. 03:10 Method Of Arrival: Ambulatory ke 03:10 Acuity: BERNICE 4 ke1 Triage Assessment: 03:13 General: Appears uncomfortable, Behavior is appropriate for age. Pain: Complains of ke1 pain in Left ankle Pain currently is 10 out of 10 on a pain scale. at worst was 10 out of 10 on a pain scale. level that patient reports is acceptable is 4 out of 10 on a pain scale. Historical: - Allergies: 03:12 No Known Allergies; ke1 - PMHx: 03:12 Gout; ke1 - Immunization history:: Client reports having NOT received the Covid vaccine. - Social history:: Smoking status: Patient reports the use of cigarette tobacco products, smokes one pack cigarettes per day. Screenin:13 Abuse screen: Denies threats or abuse. Nutritional screening: No deficits noted. ke1 Tuberculosis screening: No symptoms or risk factors identified. Fall Risk No fall in past 12 months (0 pts). Secondary diagnosis (15 points) gout pain l ankle. No IV (0 pts). Ambulatory Aid- None/Bed Rest/Nurse Assist (0 pts). Gait- Normal/Bed Rest/Wheelchair (0 pts) Mental Status- Oriented to own ability (0 pts). Total Qureshi Fall Scale indicates No Risk (0-24 pts). Assessment: 03:50 Reassessment: Patient states feeling better. Patient states symptoms have improved. ke1 Vital Signs: 03:10 BP 138 / 84; Pulse 103; Resp 17; Temp 98.5(O); Pulse Ox 95% on R/A; Weight 127.01 kg; ke1 Height 5 ft. 11 in. (180.34 cm); Pain 10/10; 03:50 BP 132 / 81; Pulse 91; Resp 17; Pulse Ox 97% ; Pain 2/10; ke1 03:10 Body Mass Index 39.05 (127.01 kg, 180.34 cm) ke1 ED Course: 03:04 Patient arrived in ED. ag3 03:05 Raz Levi DO is Attending Physician. ms3 03:08 Heraclio Darden RN is Primary Nurse. ke1 03:12 Triage completed. ke1 03:14 Arm band placed on left wrist. ke1 03:14 Bed in low position. Call light in reach. ke1 03:39 No provider procedures requiring assistance completed. Patient did not have IV access ke1 during this emergency room visit. Administered Medications: 03:27 Drug: Ketorolac 15 mg Route: IM; Site: right ventrogluteal; ke1 03:51 Follow up: Response: Marked relief of symptoms ke1 03:27 Drug: Decadron (dexamethasone) 10 mg Route: IM; Site: right ventrogluteal; ke1 03:51 Follow up: Response: Marked relief of symptoms ke1 03:27 Drug: colchicine 1.2 mg Route: PO; ke1 03:51 Follow up: Response: No adverse reaction ke1 03:35 CANCELLED (Physician Discretion): colchicine 0.6 mg PO once; Give 1 hour after giving ms3 1.2 mg dose Medication: 03:39 VIS not applicable for this client. ke1 Outcome: 03:35 Discharge ordered by . ms3 03:39 Discharged to home with crutches. ke1 03:39 Condition: good 03:39 Discharge instructions given to patient. 03:51 Patient left the ED. ke1 Signatures: Ashley Villegas ag3 Raz Levi DO DO ms3 Heraclio Darden RN RN ke1
--- NOTE | 2022-01-06 03:36 | EDPHYS ---
Physician Documentation [facility] Name: Leonard Gonsales Age: 31 yrs Sex: Male : 1990 Arrival Date: 01/06/2022 Time: 03:04 Bed 5 Private MD: ED Physician Raz Levi HPI: 01/06 03:18 This 31 yrs old Male presents to ER via Ambulatory with complaints of Foot Pain. ms3 03:18 31-year-old male with past medical history of gout presents for left ankle pain that ms3 began yesterday. Patient states pain is worse with ambulating. Patient denies alleviating factor. Patient states pain is a 10/10 described as throbbing. Patient denies nausea, vomiting, fevers, chills.. Historical: - Allergies: 03:12 No Known Allergies; ke1 - PMHx: 03:12 Gout; ke1 - Immunization history:: Client reports having NOT received the Covid vaccine. - Social history:: Smoking status: Patient reports the use of cigarette tobacco products, smokes one pack cigarettes per day. ROS: 03:18 MS/extremity: Positive for pain, swelling, tenderness, warmth, of the left ankle. ms3 03:18 Constitutional: Negative for fever, and chills. Neck: Negative for injury, pain, and swelling, Cardiovascular: Negative for chest pain, and palpitations. Respiratory: Negative for shortness of breath, cough, wheezing, and pleuritic chest pain, Abdomen/GI: Negative for abdominal pain, nausea, vomiting, diarrhea, and constipation, Skin: Negative for injury, rash, and discoloration. 03:18 All other systems are negative. Exam: 03:18 Constitutional: This is a well developed, well nourished patient who is awake, alert, ms3 and in no acute distress. Head/Face: Normocephalic, atraumatic. Neck: Trachea midline, no cervical lymphadenopathy. Supple, full range of motion without nuchal rigidity, or vertebral point tenderness. No Meningismus. Chest/axilla: Normal chest wall appearance and motion. Nontender with no deformity. Cardiovascular: Regular rate and rhythm with a normal S1 and S2. No gallops, murmurs, or rubs. Normal PMI, no JVD. No pulse deficits. Respiratory: Lungs have equal breath sounds bilaterally, clear to auscultation and percussion. No rales, rhonchi or wheezes noted. No increased work of breathing, no retractions or nasal flaring. Abdomen/GI: Soft, non-tender, with normal bowel sounds. No distension or tympany. No guarding or rebound. No evidence of tenderness throughout. Skin: Warm, dry with normal turgor. Normal color with no rashes, no lesions, and no evidence of cellulitis. 03:18 Musculoskeletal/extremity: Extremities: noted in the left ankle: erythema, pain, swelling, tenderness. Vital Signs: 03:10 BP 138 / 84; Pulse 103; Resp 17; Temp 98.5(O); Pulse Ox 95% on R/A; Weight 127.01 kg; ke1 Height 5 ft. 11 in. (180.34 cm); Pain 10/10; 03:50 BP 132 / 81; Pulse 91; Resp 17; Pulse Ox 97% ; Pain 2/10; ke1 03:10 Body Mass Index 39.05 (127.01 kg, 180.34 cm) ke1 MDM: 03:11 Patient medically screened. ms3 03:18 Differential diagnosis: arthritis, gout. Data reviewed: vital signs, nurses notes, and ms3 as a result, I will discharge patient. Counseling: I had a detailed discussion with the patient and/or guardian regarding: the historical points, exam findings, and any diagnostic results supporting the discharge/admit diagnosis, the need for outpatient follow up, to return to the emergency department if symptoms worsen or persist or if there are any questions or concerns that arise at home. 03:39 ED course: Patient given Toradol, dexamethasone, 1.3 mg colchicine in the emergency ms3 department. Patient brought prescriptions recently filled into the emergency department and patient has colchicine. Patient instructed to take 0.6 mg colchicine in 1 hour. Patient voiced understanding. Patient to follow-up with his primary care physician in 2 to 3 days. Patient understands and agrees with plan. All questions were answered. Return precautions discussed include worsening symptoms, or any other concerns. 01/06 03:35 Order name: Crutches; Complete Time: 03:37 ms3 Administered Medications: 03:27 Drug: Ketorolac 15 mg Route: IM; Site: right ventrogluteal; ke1 03:51 Follow up: Response: Marked relief of symptoms ke1 03:27 Drug: Decadron (dexamethasone) 10 mg Route: IM; Site: right ventrogluteal; ke1 03:51 Follow up: Response: Marked relief of symptoms ke1 03:27 Drug: colchicine 1.2 mg Route: PO; ke1 03:51 Follow up: Response: No adverse reaction ke1 03:35 CANCELLED (Physician Discretion): colchicine 0.6 mg PO once; Give 1 hour after giving ms3 1.2 mg dose Disposition Summary: 01/06/22 03:35 Discharge Ordered Location: Home ms3 Condition: Stable ms3 Diagnosis - Idiopathic gout, left ankle and foot ms3 - Essential (primary) hypertension ms3 Followup: ms3 - With: Private Physician - When: 2 - 3 days - Reason: Recheck today's complaints Discharge Instructions: - Discharge Summary Sheet ms3 - Gout ms3 - Hypertension, Adult ms3 - Low-Purine Eating Plan ms3 - Gout, [id number] ms3 Forms: - Medication Reconciliation Form ms3 - Thank You Letter ms3 - Antibiotic Education ms3 - Prescription Opioid Use ms3 Prescriptions: - indomethacin 50 mg Oral capsule - take 1 capsule by ORAL route 3 times per day with food; 20 capsule; Refills: 0, ms3 Product Selection Permitted Signatures: Raz Levi DO DO ms3 Heraclio Darden RN RN ke1 Corrections: (The following items were deleted from the chart) 03:35 03:17 colchicine 0.6 mg PO once; Give 1 hour after giving 1.2 mg dose ordered. ms3 ms3
[2022-01-06 04:32] VITALS: BP 132/81; TEMP 98.5; O2SAT 97
== END 2022-01-06 03:51 | disposition home or self-care (01) ==
LOC: ER 03:00
DX: M10.072 Idiopathic gout, left ankle and foot (principal); I10 Essential (primary) hypertension; F17.210 Nicotine dependence, cigarettes, uncomplicated
CPT/HCPCS: 96372; 99283; J1100

== ENCOUNTER 2024-07-16 12:10 | Emergency (ER) | payer BC ==
--- NOTE | 2024-07-16 13:07 | EDPHYS ---
Physician Documentation [facility] Name: Leonard Gonsales Age: 34 yrs Sex: Male : 1990 Arrival Date: 07/16/2024 Time: 12:10 Bed IW6 Private MD: LEROY Physician Jennyfer Martin HPI: 07/16 13:01 This 34 yrs old Male presents to ER via Ambulatory with complaints of Elbow sw6 pain. 13:01 The patient or guardian complains of pain, that is acute. The complaints affect the sw6 left elbow. Onset: The symptoms/episode began/occurred 2 day(s) ago. Treatment prior to arrival includes: no previous treatment. The patient has experienced a previous episode, and the symptoms today are exactly the same. The patient presents from home for evaluation for left elbow pain has been slowly getting worse for the past 3 days. He is right-handed. No injury or trauma. No fevers or chills. No history of diabetes. He does report a history of gout and report he has had gout in his elbow in the past. He is supposed to be on allopurinol daily but has not been taking it until today when he restarted taking it. No wounds to his elbow. here for evaluation.. Historical: - Allergies: 12:52 No Known Allergies; ss - PMHx: 12:52 Gout; Hypertensive disorder; ss - PSHx: 12:52 R knee; Bilateral feet; ss - Infectious Disease History:: Denies. - Social history:: Smoking status: Patient reports the use of cigarette tobacco products, smokes one pack cigarettes per day. Patient reports use of chewing tobacco. ROS: 13:01 Constitutional: Negative for fever, chills, and weight loss, Cardiovascular: Negative sw6 for chest pain, palpitations, and edema, Respiratory: Negative for shortness of breath, cough, wheezing, and pleuritic chest pain, Abdomen/GI: Negative for abdominal pain, nausea, vomiting, diarrhea, and constipation, 13:01 MS/extremity: Positive for decreased range of motion, pain, 13:01 All other systems are negative, Exam: 13:01 Constitutional: This is a well developed, well nourished patient who is awake, alert, sw6 and in no acute distress. Chest/axilla: Normal chest wall appearance and motion. Nontender with no deformity. No lesions are appreciated. Cardiovascular: Regular rate and rhythm with a normal S1 and S2. No gallops, murmurs, or rubs. Normal PMI, no JVD. No pulse deficits. Respiratory: Lungs have equal breath sounds bilaterally, clear to auscultation and percussion. No rales, rhonchi or wheezes noted. No increased work of breathing, no retractions or nasal flaring. Abdomen/GI: Soft, non-tender, with normal bowel sounds. No distension or tympany. No guarding or rebound. No evidence of tenderness throughout. 13:01 Musculoskeletal/extremity: Decreased range of motion of the left elbow due to pain. There is no warmth or swelling noted to the left arm. +2 radial pulse left side. Full range of motion of his left wrist and shoulder.. Vital Signs: 12:51 BP 147 / 87; Pulse 96; Resp 20; Temp 99.3(O); Pulse Ox 98% on R/A; Weight 131.54 kg; ss Height 5 ft. 11 in. ; Pain 10/10; 12:51 Body Mass Index 40.45 (131.54 kg, 180.34 cm) 12:51 Pain Scale: Adult ss MDM: 13:01 Differential diagnosis: contusion, abrasion, Gout. Data reviewed: vital signs, nurses sw6 notes. ED course: No concern for fracture based on his presentation. Suspect the patient has gout as he has had previous symptoms like this in the past that was his gout. Advised the patient to stop taking allopurinol until symptoms have resolved. I will prescribe the patient colchicine and provide him with a Decadron shot here in the ER. He remained stable here in the ER and is okay for discharge home with PCP follow-up.. 13:05 Medical Screening Exam initiated sw6 Administered Medications: 14:18 Drug: Dexamethasone IM 10 mg IM once Route: IM; Site: right gluteus; 14:18 Follow up: Response: No adverse reaction; Medication Administered at Departure 14:18 Drug: colchicine Solution 0.6 mg PO once Route: PO; 14:18 Follow up: Response: Medication Administered at Departure Disposition Summary: 07/16/24 13:05 Discharge Ordered Notes: Location: Home [facility] Problem: new [facility] Symptoms: are unchanged [facility] Condition: Stable 6 Diagnosis - Gout, unspecified sw6 Discharge Instructions: - Discharge Summary Sheet sw6 - Low-Purine Eating Plan sw6 - Gout, [id number] 6 Forms: - Medication Reconciliation Form 6 - Antibiotic Education 6 - Prescription Opioid Use 6 - Patient Portal Instructions 6 - Leadership Thank You Letter 6 Prescriptions: - colchicine 0.6 mg Oral capsule - take 1 capsule ORAL route 2 times per day; 14 capsule; Refills: 0, Product 6 Selection Permitted Signatures: Emelia Loomis RN RN Jennyfer Sterling MD MD
--- NOTE | 2024-07-16 13:07 | ER ---
Nurse's Notes [facility] Name: Leonard Gonsales Age: 34 yrs Sex: Male : 1990 Arrival Date: 07/16/2024 Time: 12:10 Bed IW6 Private MD: Diagnosis: Gout, unspecified Presentation: 07/16 12:51 Chief complaint: Patient states: L elbow pain x 3 days. HX of gout. Pt states that this ss pain feels similar to a previous gout flare up. Coronavirus screen: Client denies travel out of the [place] in the last 14 days. Ebola Screen: Patient denies exposure to infectious person. Patient denies travel to an Ebola-affected area in the 21 days before illness onset. Initial Sepsis Screen: Does the patient meet any 2 criteria? No. Patient's initial sepsis screen is negative. Does the patient have a suspected source of infection? No. Patient's initial sepsis screen is negative. Risk Assessment: Do you want to hurt yourself or someone else? Patient reports no desire to harm self or others. Onset of symptoms was July 13, 2024. 12:51 Method Of Arrival: Ambulatory ss 12:51 Acuity: BERNICE 3 ss Historical: - Allergies: 12:52 No Known Allergies; ss - PMHx: 12:52 Gout; Hypertensive disorder; ss - PSHx: 12:52 R knee; Bilateral feet; ss - Infectious Disease History:: Denies. - Social history:: Smoking status: Patient reports the use of cigarette tobacco products, smokes one pack cigarettes per day. Patient reports use of chewing tobacco. Assessment: 14:19 Reassessment: Patient appears in no apparent distress at this time. Patient and/or ss family updated on plan of care and expected duration. Pain level reassessed. Patient is alert, oriented x 3, equal unlabored respirations, skin warm/dry/pink. Vital Signs: 12:51 BP 147 / 87; Pulse 96; Resp 20; Temp 99.3(O); Pulse Ox 98% on R/A; Weight 131.54 kg; ss Height 5 ft. 11 in. ; Pain 10/10; 12:51 Body Mass Index 40.45 (131.54 kg, 180.34 cm) 12:51 Pain Scale: Adult ED Course: 12:15 Patient arrived in ED. al6 12:52 Triage completed. ss 12:52 Arm band placed on left wrist. 12:53 Jennyfer Martin MD is Attending Physician. [facility] 14:18 No provider procedures requiring assistance completed. Patient did not have IV access ss during this emergency room visit. Administered Medications: 14:18 Drug: Dexamethasone IM 10 mg IM once Route: IM; Site: right gluteus; 14:18 Follow up: Response: No adverse reaction; Medication Administered at Departure ss 14:18 Drug: colchicine Solution 0.6 mg PO once Route: PO; ss 14:18 Follow up: Response: Medication Administered at Departure Outcome: 13:05 Discharge ordered by . sw6 14:18 Discharged to home ambulatory, 14:18 Condition: good 14:18 Discharge instructions given to patient, Instructed on discharge instructions, follow up and referral plans. medication usage, Demonstrated understanding of instructions, follow-up care, medications, Prescriptions given X 1, 14:19 Patient left the ED. Signatures: Emelia Loomis RN RN Jennyfer Martin MD MD [facility]
[2024-07-16] MEDS ORDERED: COLCHICINE 0.6 MG TAB ONE (14:11)
[2024-07-16] MEDS ORDERED: dexAMETHasone 10 MG/ML VIAL ONE (14:11)
[2024-07-16 14:35] VITALS: BP 147/87; TEMP 99.3; O2SAT 98
== END 2024-07-16 14:19 | disposition home or self-care (01) ==
LOC: ER 12:10
DX: M10.9 Gout, unspecified (principal); F17.210 Nicotine dependence, cigarettes, uncomplicated
CPT/HCPCS: 96372; 99284; J1100